=== PATIENT | female | born 1980 | race Two or more races ===

== ENCOUNTER 2024-04-17 17:02 | Emergency (ER) | payer SELFPAY ==
[~2024-04-17] VITALS: Ht 162.6 cm; Wt 81.0 kg
[2024-04-17 17:02] VITALS: BP 180/100; RESP 12; O2SAT 98
[2024-04-17 18:23] VITALS: PULSE 70
[2024-04-17] MEDS ORDERED: LOSARTAN POTASSIUM 50 MG TAB PO ONE (18:30)
[2024-04-17] MEDS ORDERED: LOSA-534 PO (19:05)
== END 2024-04-17 21:03 | disposition home or self-care (01) ==
LOC: ER 17:02
DX: I16.0 Hypertensive urgency (principal); E78.5 Hyperlipidemia, unspecified; Z90.49 Acquired absence of other specified parts of digestive tract; Z98.890 Other specified postprocedural states
CPT/HCPCS: 93005